=== PATIENT | female | born 1965 | race Caucasian/White ===

== ENCOUNTER → 2018-05-15 | Day surgery (SDC) | payer BC ==
[2018-05-13 15:35] LABS: ANION GAP 15.5 mmol/L (8-16); BLOOD UREA NITROGEN 12 mg/dL (7-26); BUN/CREATININE RATIO 14 (6-25); CALCIUM 9.6 mg/dL (8.4-10.2); CARBON DIOXIDE 26 mmol/L (22-29); CHLORIDE 106 mmol/L (98-107); CREATININE, SERUM 0.87 mg/dL (0.57-1.11); EST GLOMERULAR FILTRATION RATE > 60 ML/MIN (60-); GLUCOSE 97 mg/dL (74-118); POTASSIUM 4.5 mmol/L (3.5-5.1); SODIUM 143 mmol/L (136-145)
[~2018-05-15] MED LIST: AMBIEN CR12.5 MG PO; AMBIEN10 MG PO; BENTYL10 MG PO; CELEXA20 MG PO; CLONAZEPAM0.5 M1 PO; CLONAZEPAM0.5 MG PO; COLACE100 MG PO; CYCLOBENZAPRINE10 MG PO; CYCLOBENZAPRINE5 MG PO; ESTRACE1 MG PO; FENTANYL CITRATE/PF 100MCG/2 ML INJ ONE; GABAPENTIN300 MG PO; METOPROLOL TART50 MG PO; MIDAZOLAM HCL 2 MG/2 ML VIAL ONE; MULTIVITAMIN PO; NEURONTIN100 MG PO; NEXIUM40 MG; PREMARIN0.625 MG PO; PROPOFOL IV EMULSION 10 MG/ML 50 ML VIAL ONE; REGLAN10 MG PO; TYLENOL # 31 EA PO; ULTRAM 50MG50 MG PO; ULTRAM50 MG PO; VALTREX1000 MG PO; WELLBUTRIN SR150 MG PO; ZOFRAN ODT4 MG SL
--- OUTSIDE RECORDS SUMMARY | 2018-05-15 09:34 | XMS REPORT | Clinical Summary ---
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 (Primary Dx) 07/02/2017 Transcribe Physical Therapy Earl Willis III, Unspecified dislocation Orders MD of left little finger, initial encounter (Primary Dx) after 05/14/2017 Social History Tobacco Use Types Packs/Day Years Used Date Never Assessed Sex Assigned at Date Recorded Not on file Last Filed Vital Signs Not on file Plan of Treatment Health Maintenance Due Date Last Done Comments CERVICAL CANCER SCREENING 02/09/1984 BREAST CANCER SCREENING 2013 COLON CANCER SCREENING 2013 SHINGRIX VACCINE (#1) 2013 INFLUENZA VACCINE 02/27/2018 Results Not on fileafter 05/14/2017 Insurance Payer Benefit Subscriber ID Type Phone Address Plan / Group WORKERS COMP [place] xxxxxxxxxxxxx Workers [employer] Comp BCBS BCBS xxxxxxxxxxxx PPO CHOICE PPO/GURPREET LOMAX PPO Home: [id number] Workers Self 1965 Work: [id number] [place] [address] Home:
[2018-05-15 11:20] VITALS: BP 132/79
--- NOTE | 2018-05-15 12:43 | Operative Report ---
DATE OF PROCEDURE: May 15, 2018 REFERRING PHYSICIAN: Homer James MD PROCEDURE PERFORMED: Esophagogastroduodenoscopy with esophageal dilatation and biopsies. INDICATIONS FOR PROCEDURE: Dysphagia. MEDICATION: Patient was done under MAC. Please see anesthesiologist's note. PROCEDURE: With the patient in the left lateral decubitus position, the flexible fiberoptic Olympus gastroscope was introduced into the esophagus under direct visualization without any difficulty. There was some patchy erythema noted in the distal esophagus. Also, there were some longitudinal furrows noted in the distal esophagus suspicious for eosinophilic esophagitis, and biopsies were obtained. A mild stricture was noted at the GE junction that was dilated to size 52-[place] Lang. Also, a minute nodule was noted at the GE junction that was biopsied. The scope was then advanced with ease into the stomach, traversing a small sliding hiatal hernia. Mucosa overlying the antrum and the body revealed some patchy erythema and low-grade edema, and biopsies were obtained and sent to stain for H. pylori. Pylorus appeared to be of normal contour and shape. It was intubated with ease, and the scope was advanced all the way to the 2nd portion of the duodenum. The scope was then withdrawn slowly. Mucosa overlying the proximal 2nd portion and the duodenal bulb appeared to be within normal limits. The scope was then withdrawn back into the stomach and retroflexed. Mucosa overlying the fundus and the cardia appeared to be within normal limits. The scope was then straightened out. The stomach was decompressed. The scope was subsequently withdrawn. Patient tolerated the procedure well. IMPRESSION 1. Rule out eosinophilic esophagitis. 2. Esophageal stricture at gastroesophageal junction dilated to size 52-[place] Lang. 3. Minute nodule at gastroesophageal junction, biopsied. 4. Small sliding hiatal hernia. 5. Gastritis, biopsied. Biopsies sent to stain for H. pylori. PLAN: Follow up histology. Continue Reglan 10 mg 1 p.o. a.c. t.i.d. and nightly and Dexilant 60 mg 1 p.o. q.a.m. a.c. Job#: [id number] cc:HOMER JAMES MD
== END | disposition home or self-care (01) ==
LOC: OR 09:32
PROVIDERS: ATTEND Internal Medicine Gastroenterology
DX: K22.2 Esophageal obstruction (principal); K29.70 Gastritis, unspecified, without bleeding; K20.8 Other esophagitis; K22.8 Other specified diseases of esophagus; K21.9 Gastro-esophageal reflux disease without esophagitis; K44.9 Diaphragmatic hernia without obstruction or gangrene; R05 Cough; Z88.6 Allergy status to analgesic agent; I10 Essential (primary) hypertension; F41.9 Anxiety disorder, unspecified; Z79.84 Long term (current) use of oral hypoglycemic drugs; Z01.812 Encounter for preprocedural laboratory examination; Z90.5 Acquired absence of kidney
CPT/HCPCS: 36415; 43239; 43450; 80048; J2250

== ENCOUNTER 2019-03-18 06:36 | Emergency (ER) | payer OTHER ==
[~2019-03-18] VITALS: Ht 167.6 cm; Wt 67.1 kg
[~2019-03-18 06:36] MED LIST changes: -FENTANYL CITRATE/PF 100MCG/2 ML INJ ONE; -MIDAZOLAM HCL 2 MG/2 ML VIAL ONE; -PROPOFOL IV EMULSION 10 MG/ML 50 ML VIAL ONE
--- OUTSIDE RECORDS SUMMARY | 2019-03-18 06:39 | XMS REPORT | Encounter Summary ---
Author Organization Unknown Address [address] [place] [address] Phone [phone] Care Team Providers Care Piping Blocker Name Role Phone Dr. Homer James 3 [phone] Homer Orellana MD 3 [phone] Rio Angel MD 82 [phone] Vinod Harper 107 [phone] Trung Mora MD 115 [phone] Reason for Visit Left abdominal pain Instructions 1. Laryngeal spasm gabapentin 300 mg capsule 2. Anxiety clonazepam 0.5 mg tablet 3. Abdominal pain urinalysis, dipstick go to emergency room 4. Easy bruising Discussion Note: None recorded. Plan of Care Patient Instructions attend ER stat Reminders Provider Appointments None recorded. Lab Urinalysis, Dipstick 03/17/2019 [facility] (p) [place] Referral None recorded. Procedures None recorded. Surgeries None recorded. Imaging None recorded. Medications Name Start Date bupropion HCl 150 mg tablet,12 hr sustained-release(smoking deterrent) Take 1 tablet every day by oral route. bupropion HCl SR 150 mg tablet,12 hr sustained-release TAKE 1 TABLET BY MOUTH TWICE DAILY DIRECTED clonazepam 0.5 mg tablet TAKE 1 TABLET BY MOUTH EVERY 8 HOURS NEEDED estradiol 2 mg tablet TAKE 1 TABLET BY MOUTH EVERY DAY DIRECTED gabapentin 300 mg capsule TAKE 1 CAPSULE BY MOUTH EVERY 12 HOURS DIRECTED ondansetron HCl 8 mg tablet as needed valacyclovir 1 gram tablet TAKE 1 TABLET BY MOUTH EVERY 12 HOURS zolpidem ER 12.5 mg tablet,extended release,multiphase Take 1 tablet as needed by oral route at bedtime for 30 days. Medications Administered None recorded. Vitals Height Weight BMI Blood Pressure 5 ft 5 in 158 lbs 26.3 kg/m2 124/74 mm[Hg] Lab Results None recorded. Allergies Code Code System Name Reaction Severity Status Onset 21612 RxNorm Atorvastatin Arthralgia (Joint Pain) Active 7052 RxNorm Morphine Active Problems Name Status Onset Date Source Anxiety Active 04/18/2016 Insomnia Active 04/18/2016 Restless Legs Active 04/18/2016 Menopausal Flushing Active 04/18/2016 Mixed Hyperlipidemia Active 08/08/2016 Thyroid Nodule Active 10/26/2016 Procedures Date Name Performed by 07/26/2015 Remove Kidney Open Information not available 07/30/2006 Hysterectomy (Partial) Information not available 07/30/2006 Cholecystectomy (Gall Bladder Removal) Information not available 07/30/1992 PERSONAL CARER Surgery (Gynecology) Information not available Total Hysterectomy with Removal of Both Tubes and Ovaries Information not available Colonoscopy with Biopsy Information not available Tonsilectomy/adenoids Information not available Vaccine List Vaccine Type influenza, injectable, quadrivalent 05/02/2017 influenza, unspecified formulation 04/26/2018 Tdap 07/30/2015 Social History Tobacco Smoking Status Former Smoker (1/2 PPD) Past Encounters 03/17/2019 Laryngeal Spasm; Anxiety; Abdominal Pain; Easy Bruising Wilbur Sharp MD: [address] [place] [address], Ph. 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 Physical Exam Brief Abdominal Pain Exam Reported By: Patient Constitutional: General Appearance: well-developed, well-nourished, healthy-appearing, alert, oriented, NAD, mucous membranes moist; abdo extremity bruising Cardiovascular: Heart Auscultation: S1 present, S2 present, no murmurs, no click; minimal bl ankle edema Lungs: Lungs: clear to auscultation bilaterally, no wheezing, no crackles Abdomen: Inspection and Palpation: soft, bowel sounds 4 quadrants, non-distended, LUQ tenderness; L cva /LUQ tenderness
--- OUTSIDE RECORDS SUMMARY | 2019-03-18 06:39 | XMS REPORT | Clinical Summary ---
Author Author [facility] Organization [facility] Address Unknown Phone Unavailable Care Team Providers Care Machine Operator Cane Cutter Name Role Phone Asked, No Pcp PCP Unavailable Allergies Not on File Medications Not on file Active Problems Not on file Social History Date Tobacco Use Types Packs/Day Years Used Never Assessed Sex Assigned at Date Recorded Not on file Industry Job Start Date Occupation Not on file Not on file Not on file Travel End Travel History Travel Start No recent travel history available. Last Filed Vital Signs Not on file Plan of Treatment Health Maintenance Due Date Last Done Comments BREAST CANCER SCREENING 2013 COLONOSCOPY SCREENING 2013 SHINGLES VACCINES (#1) 2013 INFLUENZA VACCINE 02/27/2019 Results Not on fileafter 03/17/2018 Insurance Type Payer Benefit Subscriber ID Effective Phone Address Plan / Dates Group Workers Comp WORKERS COMP [place] xxxxxxxxxxxxx 2017 [employer] -Present PPO BCBS BCBS xxxxxxxxxxxx 2016-P CHOICE resent PPO/FEDERA L EMPL PPO Advance Directives For more information, please contact: [phone] Patient Parts Representative Explanation Type Date Recorded Advance Directives, Living Will and Medical Power of Main Galley [place]
--- OUTSIDE RECORDS SUMMARY | 2019-03-18 06:39 | XMS REPORT | Encounter Summary ---
Author Organization Unknown Address [address] [place] [address] Phone [phone] Care Team Providers Care Geodetic Surveyor Name Role Phone Dr. Alvina Richards 3 [phone] Homer Orellana MD 3 [phone] Trung Mora MD 115 [phone] Reason for Visit Insomnia; Anxiety; Menopausal flushing; Mixed hyperlipidemia Instructions 1. Paresthesia MRI, brain, w/ contrast - Paresthesias, muscle spasms, fasciculations. R/o MS. 2. Spasm 3. Insomnia zolpidem ER 12.5 mg tablet,extended release,multiphase 4. Laryngeal spasm gabapentin 300 mg capsule 5. Mixed anxiety and depressive disorder bupropion HCl SR 150 mg tablet,12 hr sustained-release 6. Body mass index 25-29 - overweight learning about healthy weight 7. Screening for malignant neoplasm of colon colonoscopy referral - PLEASE CALL APTIENT AND SCHEDULE HER AN APPOINTMENT. PLEASE FAX NOTES TO [phone]. fecal occult blood, stool 8. Hyperlipidemia high cholesterol: care instructions Discussion Note: None recorded. Plan of Care Reminders Provider Appointments Est Patient 10/04/2018 4:30PM Homer Anthony MD Lab Fecal Occult Blood, Stool 09/25/2018 [place] [place] [facility] Referral Colonoscopy Referral 09/25/2018 Dave Adkins MD Procedures None recorded. Surgeries None recorded. Imaging MRI, Brain, W/ Contrast 09/25/2018 [facility] Medications Name Start Date bupropion HCl SR 150 mg tablet,12 hr sustained-release TAKE 1 TABLET BY MOUTH TWICE DAILY DIRECTED clonazepam 0.5 mg tablet TAKE 1 TABLET BY MOUTH TWICE DAILY DIRECTED esomeprazole magnesium 40 mg capsule,delayed release QD estradiol 2 mg tablet TAKE 1 TABLET BY MOUTH EVERY DAY DIRECTED gabapentin 300 mg capsule TAKE 1 CAPSULE BY MOUTH EVERY 12 HOURS DIRECTED valacyclovir 1 gram tablet TAKE 1 TABLET BY MOUTH EVERY 12 HOURS zolpidem ER 12.5 mg tablet,extended release,multiphase Take 1 tablet as needed by oral route at bedtime for 30 days. Medications Administered None recorded. Vitals Height Weight BMI Blood Pressure 5 ft 5 in 155.4 lbs 25.9 kg/m2 112/78 mm[Hg] Lab Results None recorded. Allergies Code Code System Name Reaction Severity Status Onset 27082 RxNorm Atorvastatin Arthralgia (Joint Pain) Active 7052 RxNorm Morphine Active Problems Name Status Onset Date Source Anxiety Active 04/18/2016 Insomnia Active 04/18/2016 Restless Legs Active 04/18/2016 Menopausal Flushing Active 04/18/2016 Mixed Hyperlipidemia Active 08/08/2016 Thyroid Nodule Active 10/26/2016 Procedures Date Name Performed by 09/30/2015 Colonoscopy with Biopsy Information not available 07/26/2015 Remove Kidney Open Information not available 07/30/2006 Hysterectomy (Partial) Information not available 07/30/2006 Cholecystectomy (Gall Bladder Removal) Information not available 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 (Gynecology) Information not available Total Hysterectomy with Removal of Both Tubes and Ovaries Information not available Tonsilectomy/adenoids Information not available 09/25/2018 MRI, Brain, W/ Contrast [facility] [place] [address] [place] [address] (Work Place) Vaccine List Vaccine Type influenza, injectable, quadrivalent 05/02/2017 influenza, unspecified formulation 04/26/2018 Tdap 07/30/2015 Social History Smoking Status Former Smoker (1/2 PPD) Past Encounters 09/25/2018 Paresthesia; Spasm; Insomnia; Laryngeal Spasm; Mixed Anxiety and Depressive Disorder; Body Mass Index 25-29 - Overweight; Screening for Malignant Neoplasm of Colon; Hyperlipidemia Homer Anthony MD: [address] [place] [address], Ph. History of Present Illness Note:<div>Diffuse muscle spasms (legs, abdomen, hands, fingers), muscle twitching in arms and legs. Numbness and tingling in the face. Hoarseness. Pt saw a neurologist 6 months ago, who ordered a MRI to r/o MS but she never had it done. Anxiety/depression stable with current meds. Denies suicidal/homicidal thoughts. Pt is having trouble sleeping due to the muscle spasms.</div> Review of Systems Comprehensive General Adult ROS Reported By: Patient Constitutional: Constitutional: no fever Eyes: Eyes: no vision change ENMT: Ears: no ear pain. Nose: no sinus problems. Mouth/Throat: no sore throat Cardiovascular: Cardiovascular: no chest pain, no arm pain on exertion, no shortness of breath when walking, no shortness of breath when lying down, no palpitations, no lightheadedness Respiratory: Respiratory: no cough, no wheezing, no shortness of breath Gastrointestinal: Gastrointestinal: no abdominal pain, no nausea, no vomiting, no constipation, no diarrhea Musculoskeletal: Musculoskeletal: no muscle weakness, no back pain, no swelling in the extremities, muscle aches Neurologic: Neurologic: no loss of consciousness, no weakness, no headaches, no tremor, numbness Psychiatric: Psych: no depression, no alcohol abuse, no anxiety, no suicidal thoughts Physical Exam General Adult Exam (male) Reported By: Patient Constitutional: General Appearance: healthy-appearing, overweight. Level of Distress: NAD. Ambulation: ambulating normally Psychiatric: Insight: good judgement. Mental Status: active and alert, normal mood, normal affect. Orientation: to time, to place, to person. Memory: recent memory normal, remote memory normal Head: Head: normocephalic, atraumatic Eyes: Lids and Conjunctivae: non-injected, no discharge. EOM: EOMI ENMT: Ears: TMs clear. Nose: no sinus tenderness. Lips, Teeth, and Gums: no mouth or lip ulcers. Oropharynx: moist mucous membranes Neck: Neck: supple, trachea midline. Thyroid: no enlargement, non-tender Lungs: Auscultation: breath sounds normal Cardiovascular: Heart Auscultation: RRR, normal S1, normal S2, no murmurs. Neck vessels: no carotid bruits. Pulses including femoral / pedal: normal throughout Abdomen: Inspection and Palpation: soft, non-distended, no tenderness, no guarding Musculoskeletal:: Motor Strength and Tone: normal, normal tone. Joints, Bones, and Muscles: normal movement of all extremities, no contractures, no bony abnormalities, no malalignment, tenderness. Extremities: no edema Neurologic: Gait and Station: normal gait. Cranial Nerves: grossly intact. Sensation: grossly intact. Reflexes: DTRs 2+ bilaterally throughout. Coordination and Cerebellum: [id number] intact, no tremor Skin: Inspection and palpation: no rash, no lesions Back: Thoracolumbar Appearance: normal curvature
--- OUTSIDE RECORDS SUMMARY | 2019-03-18 06:39 | XMS REPORT | Encounter Summary ---
Author Organization Unknown Address [address] [place] [address] Phone [phone] Care Team Providers Care Senior Systems Developer Name Role Phone Homer Orellana MD 3 [phone] Rio Angel MD 82 [phone] Vinod Harper 107 [phone] Trung Mora MD 115 [phone] Reason for Visit Insomnia; Anxiety; Menopausal flushing; Mixed hyperlipidemia Instructions 1. Insomnia 2. Anxiety clonazepam 0.5 mg tablet 3. Spasm neurology referral - Please call patient and schedule her an appointment. 4. Gastroesophageal reflux disease esomeprazole magnesium 40 mg capsule,delayed release 5. Herpes simplex valacyclovir 1 gram tablet Discussion Note: None recorded. Patient educational handouts: No information available. Plan of Care Reminders Provider Appointments Return to Office on or around 03/21/2019 Homer Anthony MD Lab None recorded. Referral Neurology Referral 12/18/2018 Cheryle Lyon MD Procedures None recorded. Surgeries None recorded. Imaging None recorded. Medications Name Start Date bupropion HCl SR [...] BMI Blood Pressure 5 ft 5 in 159 lbs 26.5 kg/m2 112/66 mm[Hg] Lab Results None recorded. 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 History of Present Illness Note:<div>F/u on chronic conditions. Still complaining of diffuse muscle spasms and paresthesias in the face. MRI of the brain was wnl. Anxiety/depression stable with current meds. Denies suicidal/homicidal thoughts. Still complaining of difficulty sleeping. Zolpidem doesn't seem to be helping.</div> Review of Systems Comprehensive General Adult ROS Reported By: Patient Eyes: Eyes: no vision change Cardiovascular: Cardiovascular: no chest pain, no arm [...] and Conjunctivae: non-injected, no discharge. EOM: EOMI Neck: Neck: supple, trachea midline Lungs: Auscultation: breath sounds normal Cardiovascular: Heart Auscultation: RRR, normal S1, normal S2, no murmurs Neurologic: Gait and Station: normal gait. Cranial Nerves: grossly intact. Coordination and Cerebellum: no tremor
[2019-03-18] MEDS ORDERED: SODIUM CHLORIDE 0.9% 1000ML 1,000 ML IV STA (07:27)
[2019-03-18 07:45] LABS: BASOPHILS % 0.7 % (0.0-1.0); EOSINOPHILS # (AUTO) 0.2 (0.0-0.4); EOSINOPHILS % 3.1 % (0.0-6.0); HEMATOCRIT 37.4 % (34.2-44.1); HEMOGLOBIN 12.3 g/dL (12.0-16.0); LYMPHOCYTES # (AUTO) 0.9 (1.0-3.2); LYMPHOCYTES % 15.1 % (18.0-39.1); MEAN CORPUSCULAR HEMOGLOBIN 31.4 pg (28-32); MEAN CORPUSCULAR HGB CONC 32.9 g/dL (31-35); MEAN CORPUSCULAR VOLUME 95.4 fL (81-99); MONOCYTES # (AUTO) 0.6 (0.2-0.8); MONOCYTES % 9.9 % (4.4-11.3); NEUTROPHILS # (AUTO) 4.1 (2.1-6.9); PLATELET COUNT 198 x10e3/uL (140-360); RED BLOOD COUNT 3.92 x10e6/uL (3.6-5.1); RED CELL DISTRIBUTION WIDTH 13.1 % (11.7-14.4)
[2019-03-18] MEDS ORDERED: KETOROLAC TROMETHAMINE 30 MG/ML VIAL IV ONE (08:00)
[2019-03-18 08:01] LABS: AMYLASE 27 U/L (25-125); LIPASE 23 U/L (8-78)
--- NOTE | 2019-03-18 08:02 | Diagnostic Imaging Report ---
EXAMINATION: CHEST 2 VIEWS INDICATION: Left upper quadrant pain COMPARISON: None FINDINGS: PA and lateral views TUBES and LINES: None. LUNGS: Lungs are well inflated. Lungs are clear. There is no evidence of pneumonia or pulmonary edema. PLEURA: No pleural effusion or pneumothorax. HEART AND MEDIASTINUM: The cardiomediastinal silhouette is unremarkable. BONES AND SOFT TISSUES: No acute osseous lesion. Soft tissues are unremarkable. UPPER ABDOMEN: No free air under the diaphragm. Surgical clips in the left upper abdomen. IMPRESSION: No acute thoracic abnormality. Signed by: Cl Crawford DO on 03/18/2019 7:59 AM
[2019-03-18 08:06] LABS: ALANINE AMINOTRANSFERASE 21 IU/L (0-55); ALBUMIN 3.4 g/dL (3.5-5.0); ALBUMIN/GLOBULIN RATIO 1.2 (0.8-2.0); ALKALINE PHOSPHATASE 65 IU/L (40-150); ANION GAP 7.9 mmol/L (8-16); BLOOD UREA NITROGEN 10 mg/dL (7-26); BUN/CREATININE RATIO 13 (6-25); CALCIUM 9.1 mg/dL (8.4-10.2); CARBON DIOXIDE 27 mmol/L (22-29); CHLORIDE 104 mmol/L (98-107); CREATINE KINASE 62 IU/L (29-168); CREATININE, SERUM 0.78 mg/dL (0.57-1.11); EST GLOMERULAR FILTRATION RATE > 60 ML/MIN (60-); GLUCOSE 94 mg/dL (74-118); POTASSIUM 3.9 mmol/L (3.5-5.1); SODIUM 135 mmol/L (136-145)
[2019-03-18 08:57] LABS: BILIRUBIN,URINE NEGATIVE (NEGATIVE); CLARITY,URINE CLEAR (CLEAR); COLOR,URINE YELLOW (YELLOW); KETONES,URINE NEGATIVE (NEGATIVE); LEUKOCYTE ESTERASE ,URINE NEGATIVE (NEGATIVE); NITRITE,URINE NEGATIVE (NEGATIVE); PROTEIN,URINE DIPSTICK NEGATIVE (NEGATIVE); URINE UROBILINOGEN 0.2 mg/dL (0.2 - 1)
[2019-03-18 09:05] LABS: BACTERIA,URINE FEW /HPF; EPITHELIAL CELLS,URINE FEW /LPF; WBC,URINE (MAN) 0-5 /HPF (0-5)
[2019-03-18] MEDS ORDERED: DICYCLOMINE HCL 20 MG/2 ML VIAL IM ONE (09:45)
--- NOTE | 2019-03-18 10:30 | Diagnostic Imaging Report ---
CT of the abdomen and pelvis, with contrast, 03/18/2019. History: Left upper abdominal pain, nausea. Comparison: 08/11/2015, 06/30/2015. Technique: Multidetector CT scanning of the abdomen and pelvis was performed from the level of the lung bases to the inferior pubic rami after intravenous and oral administration of contrast. Coronal and sagittal multiplanar reformations were obtained. RADIATION DOSE: Total DLP: 421 mGy*cm Dose modulation, iterative reconstruction, and/or weight based adjustment of the mA/kV was utilized to reduce the radiation dose to as low as reasonably achievable. Discussion: LUNG BASES: No visualized abnormalities. ABDOMEN: Cholecystectomy clips are present. Surgical clips are seen adjacent to the upper pole of the left kidney with areas of cortical scarring consistent with prior surgery. The liver, biliary tree, spleen, pancreas, adrenal glands, and right kidney are normal. The hepatic vein, portal vein, and splenic vein are patent. The abdominal aorta is within normal limits for size. A 3.3 x 2 cm air-fluid containing diverticulum is again seen arising from the third portion of the duodenum versus distal CBD. The stomach and small bowel are otherwise unremarkable. The appendix is visualized and is normal. Multiple diverticuli are seen within the colon without evidence of adjacent inflammation. There is no evidence of adenopathy or free fluid. PELVIS: The bladder, prostate, and seminal vesicles are normal in appearance. There is no evidence of free fluid or adenopathy. BONES AND SOFT TISSUES: Degenerative changes are present throughout the lumbar spine without evidence of lytic or sclerotic lesion. IMPRESSION: 1. 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 This may be further evaluated with endoscopy if clinically indicated. 2. Status post cholecystectomy and left partial nephrectomy. 3. Colonic diverticulosis without evidence of diverticulitis. Signed by: Earl Chatman on 03/18/2019 10:26 AM
[2019-03-18] MEDS ORDERED: LIDOCAINE 5% PATCH TP ONE (12:15)
[2019-03-18] MEDS ORDERED: SODIUM CHLORIDE 0.9% 50ML 50 ML ONE (12:49)
[2019-03-18] MEDS ORDERED: IOPAMIDOL 370 MG/ML 200 ML INFUS..BTL INJ ONE (12:49)
== END 2019-03-18 12:41 | disposition home or self-care (01) ==
LOC: ER 06:36
DX: S39.011A Strain of muscle, fascia and tendon of abdomen, initial encounter (principal); X58.XXXA Exposure to other specified factors, initial encounter; Y93.9 Activity, unspecified; I10 Essential (primary) hypertension; F32.9 Major depressive disorder, single episode, unspecified; K21.9 Gastro-esophageal reflux disease without esophagitis; E78.5 Hyperlipidemia, unspecified
CPT/HCPCS: 36415; 71046; 74177; 80053; 81001; 82150; 82550; 82553; 83690; 84484; 85025; 93005; 99284; J0500; J1885; J7030; Q9967

== ENCOUNTER → 2020-05-07 | Day surgery (SDC) | payer OTHER ==
[2020-05-04 13:57] LABS: BASOPHILS % 0.4 % (0.0-1.0); EOSINOPHILS # (AUTO) 0.1 (0.0-0.4); EOSINOPHILS % 1.9 % (0.0-6.0); HEMATOCRIT 36.9 % (34.2-44.1); HEMOGLOBIN 12.2 g/dL (12.0-16.0); LYMPHOCYTES # (AUTO) 1.5 (1.0-3.2); LYMPHOCYTES % 20.7 % (18.0-39.1); MEAN CORPUSCULAR HEMOGLOBIN 31.5 pg (28-32); MEAN CORPUSCULAR HGB CONC 33.1 g/dL (31-35); MEAN CORPUSCULAR VOLUME 95.3 fL (81-99); MONOCYTES # (AUTO) 0.8 (0.2-0.8); MONOCYTES % 10.9 % (4.4-11.3); NEUTROPHILS # (AUTO) 4.9 (2.1-6.9); NEUTROPHILS % 65.8 % (38.7-80.0); PLATELET COUNT 205 x10e3/uL (140-360); RED BLOOD COUNT 3.87 x10e6/uL (3.6-5.1); RED CELL DISTRIBUTION WIDTH 13.6 % (11.7-14.4)
[~2020-05-07] MED LIST changes: +FENTANYL CITRATE/PF 100MCG/2 ML INJ ONE; +GLUCAGON FOR INJ 1 MG VIAL ONE; +HYOSCYAMINE 0.125 MG TAB ONE; +LIDOCAINE HCL 2% LOCAL INJ 5 ML SDV VIAL INJ ONE; +MIDAZOLAM HCL 2 MG/2 ML VIAL ONE; +PROPOFOL IV EMULSION 10 MG/ML 20 ML VIAL ONE; +[UNRECOGNIZED DRUG - OTHER] PO
[2020-05-07 12:45] VITALS: BP 123/73
== END | disposition home or self-care (01) ==
LOC: OR 09:07
PROVIDERS: ATTEND Internal Medicine Gastroenterology
DX: K29.60 Other gastritis without bleeding (principal); D12.5 Benign neoplasm of sigmoid colon; K62.1 Rectal polyp; K31.7 Polyp of stomach and duodenum; K51.50 Left sided colitis without complications; K20.80 Other esophagitis without bleeding; K57.30 Diverticulosis of large intestine without perforation or abscess without bleeding; K44.9 Diaphragmatic hernia without obstruction or gangrene; K64.8 Other hemorrhoids; K62.89 Other specified diseases of anus and rectum; I10 Essential (primary) hypertension; R00.2 Palpitations; E78.5 Hyperlipidemia, unspecified; Z88.8 Allergy status to other drugs, medicaments and biological substances; Z88.6 Allergy status to analgesic agent; Z01.810 Encounter for preprocedural cardiovascular examination; Z01.812 Encounter for preprocedural laboratory examination; Z11.59 Encounter for screening for other viral diseases; Z90.5 Acquired absence of kidney; Z80.0 Family history of malignant neoplasm of digestive organs
CPT/HCPCS: 36415; 43239; 43450; 45380; 45384; 85025; 93005; J1610; J2001; J2250; J2704; J3010; U0002

== ENCOUNTER → 2021-02-28 | Outpatient (CLI) | payer OTHER ==
[~2021-02-28] MED LIST changes: -FENTANYL CITRATE/PF 100MCG/2 ML INJ ONE; -GLUCAGON FOR INJ 1 MG VIAL ONE; -HYOSCYAMINE 0.125 MG TAB ONE; -LIDOCAINE HCL 2% LOCAL INJ 5 ML SDV VIAL INJ ONE; -MIDAZOLAM HCL 2 MG/2 ML VIAL ONE; -PROPOFOL IV EMULSION 10 MG/ML 20 ML VIAL ONE
== END ==
LOC: CT 08:13
PROVIDERS: ATTEND Urology
DX: R31.0 Gross hematuria (principal)
CPT/HCPCS: 74176

== ENCOUNTER → 2022-02-22 | Day surgery (SDC) | payer OTHER ==
[~2022-02-22] MED LIST changes: +DONNATAL/LIDOCAINE/MAALOX 30 ML SUSP PO ONE; +FENTANYL CITRATE/PF 100MCG/2 ML INJ ONE; +LIDOCAINE HCL 2% LOCAL INJ 5 ML SDV VIAL INJ ONE; +MELOXICAM7.5 MG PO; +MIDAZOLAM HCL 2 MG/2 ML VIAL ONE; +PROPOFOL IV EMULSION 10 MG/ML 20 ML VIAL ONE
[2022-02-22 11:22] VITALS: BP 144/81
[2022-02-28 13:13] LABS: ENDOMYSIAL ANTIBODIES, IGA Negative (Negative)
== END | disposition home or self-care (01) ==
LOC: ENDO 09:37
PROVIDERS: ATTEND Internal Medicine Gastroenterology
DX: K20.90 Esophagitis, unspecified without bleeding (principal); K29.60 Other gastritis without bleeding; K29.80 Duodenitis without bleeding; K44.9 Diaphragmatic hernia without obstruction or gangrene; R19.7 Diarrhea, unspecified; R15.2 Fecal urgency; Z71.3 Dietary counseling and surveillance; R05.3 Chronic cough; I10 Essential (primary) hypertension; F41.9 Anxiety disorder, unspecified; F32.A Depression, unspecified; Z88.6 Allergy status to analgesic agent; Z88.8 Allergy status to other drugs, medicaments and biological substances; Z01.810 Encounter for preprocedural cardiovascular examination; Z01.812 Encounter for preprocedural laboratory examination; Z20.822 Contact with and (suspected) exposure to COVID-19; Z79.899 Other long term (current) drug therapy; Z87.891 Personal history of nicotine dependence; Z80.0 Family history of malignant neoplasm of digestive organs
CPT/HCPCS: 0223U ×2; 36415 ×2; 43239; 43450; 82784; 83516; 86256; 93005; C9113; J2001; J2250; J2704; J3010